=== PATIENT | female | born 1995 | race Caucasian/White ===

== ENCOUNTER 2017-06-21 01:32 | Emergency (ER) | payer OTHER ==
[~2017-06-21] VITALS: Ht 172.7 cm; Wt 54.4 kg
--- NOTE | 2017-06-21 01:45 | NUR ---
TO BED 8 A 21 YO FEMALE BIBSELF C/O TOOTH ABSCESS X 4 DAYS AGO. NAD NOTED. AFEBRILE. VSS. AWAITING FOR ER MD BLOUNT.
--- NOTE | 2017-06-21 02:02 | NUR ---
Dr Dodd at bedside to eval.
--- NOTE | 2017-06-21 02:07 | NUR ---
Patient discharged to home in stable condition. Written and verbal after care instructions given. Patient verbalizes understanding of instruction. Patient is ambulatory with steady gait, no further complaints.
[2017-06-21 02:08] VITALS: BP 111/73
== END 2017-06-21 02:08 | disposition home or self-care (01) ==
LOC: ER 01:39
DX: K08.89 Other specified disorders of teeth and supporting structures (principal)
CPT/HCPCS: 99283; A4606; Z7610

== ENCOUNTER 2017-07-23 03:31 | Emergency (ER) | payer OTHER | END 2017-07-23 03:58 | disposition left against medical advice (07) | LOC: ER 03:31 | DX: Z53.21 Procedure and treatment not carried out due to patient leaving prior to being seen by health care provider (principal) ==

== ENCOUNTER 2018-01-28 15:21 | Emergency (ER) | payer OTHER ==
--- NOTE | 2018-01-28 16:40 | NUR ---
CALLED IN [facility]- NO ANSWER
--- NOTE | 2018-01-28 16:50 | NUR ---
CALLED IN [facility]- NO ANSWER
--- NOTE | 2018-01-28 17:11 | NUR ---
CALLED IN WR- NO MILADYSWER
== END 2018-01-28 17:14 | disposition left against medical advice (07) ==
LOC: ER 15:24
DX: Z53.21 Procedure and treatment not carried out due to patient leaving prior to being seen by health care provider (principal)

== ENCOUNTER 2018-01-28 18:53 | Emergency (ER) | payer OTHER ==
[~2018-01-28] VITALS: Ht 167.6 cm; Wt 54.4 kg
[2018-01-28 19:04] VITALS: BP 126/81
--- NOTE | 2018-01-28 19:12 | NUR ---
DR KELLY AT BEDSIDE FOR EVAL.
--- NOTE | 2018-01-28 19:20 | NUR ---
PT REFUSING IV LINE. REFUSING MEDS. ERMD AWARE.
--- NOTE | 2018-01-28 19:22 | NUR ---
FIBRE CEMENT MOULDER AT BEDSIDE FOR BLOOD DRAW.
[2018-01-28 19:30] LABS: BASOPHILS # (AUTO) 0.1 /CMM (0.0-0.2); BASOPHILS % (AUTO) 0.7 % (0.0-2.0); EOSINOPHILS % (AUTO) 0.5 % (0.0-6.0); HEMATOCRIT 43 % (33-45); LYMPHOCYTES # (AUTO) 1.7 /CMM (0.8-4.8); LYMPHOCYTES % (AUTO) 22.5 % (20.0-44.0); MEAN CORPUSCULAR HEMOGLOBIN 31 PG (26.0-33.0); MEAN CORPUSCULAR HGB CONC 35 g/dl (31.0-36.0); MEAN CORPUSCULAR VOLUME 90 fL (82-100); MONOCYTES # (AUTO) 0.5 /CMM (0.1-1.30); MONOCYTES % (AUTO) 6.6 % (2.0-12.0); NEUTROPHILS # (AUTO) 5.5 /CMM (1.8-8.9); NEUTROPHILS % (AUTO) 69.7 % (43.0-81.0); PLATELET COUNT (AUTO) 232 /CMM (150-450); RDW COEFFICIENT OF VARIATION 11.4 (11.5-15.0); RED BLOOD CELL COUNT(AUTO) 4.78 MIL/uL (4.0-5.2); WHITE BLOOD COUNT (AUTO) 7.8 K/uL (4.3-11.0)
[2018-01-28] MEDS ORDERED: IV NS 0.9% 1,000 ML BAG IV ONE (19:30)
[2018-01-28] MEDS ORDERED: ONDANSETRON HCL/PF 4 MG/2 ML VIAL IVP ONE (19:30)
--- NOTE | 2018-01-28 19:33 | NUR ---
U/S TECH AT BEDSIDE FOR PELVIC ULTRASOUND.
[2018-01-28 19:40] LABS: CALCIUM, SERUM 8.8 mg/dL (8.5-10.1); CREATININE 0.8 mg/dL (0.6-1.3); POTASSIUM 3.3 mmol/L (3.5-5.1)
[2018-01-28] MEDS ORDERED: POTASSIUM CHLORIDE 20 MEQ TAB.PRT.SR PO ONE (20:00)
--- NOTE | 2018-01-28 20:34 | NUR ---
Patient discharged to home in stable condition. Written and verbal after care instructions given. Patient verbalizes understanding of instruction.
== END 2018-01-28 20:36 | disposition home or self-care (01) ==
LOC: ER 18:55
DX: O99.280 Endocrine, nutritional and metabolic diseases complicating pregnancy, unspecified trimester (principal); E87.6 Hypokalemia; I48.91 Unspecified atrial fibrillation; Z3A.00 Weeks of gestation of pregnancy not specified
CPT/HCPCS: 36415; 76856-TC; 80048-TC; 84702-TC; 85025-TC; 86850-TC; A4606; Z7610

== ENCOUNTER 2018-01-29 19:15 | Emergency (ER) | payer OTHER ==
[~2018-01-29] VITALS: Ht 172.7 cm; Wt 54.4 kg
[2018-01-29 19:24] VITALS: BP 108/65
[2018-01-29] MEDS ORDERED: ACETAMINOPHEN 325 MG TABLET ONE (19:59)
== END 2018-01-29 21:00 | disposition home or self-care (01) ==
LOC: ER 19:17
DX: O02.81 Inappropriate change in quantitative human chorionic gonadotropin (hCG) in early pregnancy (principal); I48.91 Unspecified atrial fibrillation
CPT/HCPCS: 36415; 84702; 99283; A4606; Z7610

== ENCOUNTER 2018-02-02 00:36 | Emergency (ER) | payer OTHER ==
[~2018-02-02] VITALS: Ht 172.7 cm; Wt 54.4 kg
--- NOTE | 2018-02-02 00:56 | NUR ---
PT AMBULATORY BILL ER BED 16. PT BIB SELF C/O ABD PAIN X 1 DAY. DENIES N/V/D. 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 VSS/RESP EVEN UNLABORED/NAD NOTED/SKIN WARM AND DRY/AFEBRILE/AOX4. AWAITING MD BLOUNT.
--- NOTE | 2018-02-02 01:59 | NUR ---
ULTRASOUND AT BEDSIDE.
--- NOTE | 2018-02-02 02:40 | NUR ---
DR. WATT AT BEDSIDE SPEAKING TO PT REGARDING RESULTS.
--- NOTE | 2018-02-02 02:52 | NUR ---
Patient discharged to home in stable condition. Written and verbal after care instructions given. Patient verbalizes understanding of instruction. Patient ambulatory with a steady gait.
[2018-02-02 02:53] VITALS: BP 117/74
== END 2018-02-02 02:54 | disposition home or self-care (01) ==
LOC: ER 00:38
DX: O26.891 Other specified pregnancy related conditions, first trimester (principal); R10.2 Pelvic and perineal pain; I48.91 Unspecified atrial fibrillation; Z3A.01 Less than 8 weeks gestation of pregnancy; Z60.2 Problems related to living alone
CPT/HCPCS: 36415; 76856-TC; 84702-TC; A4606; Z7610

== ENCOUNTER 2018-02-08 00:30 | Emergency (ER) | payer OTHER ==
[~2018-02-08] VITALS: Ht 172.7 cm; Wt 54.4 kg
--- NOTE | 2018-02-08 02:52 | NUR ---
PT AMBULATORY TO ER BED 14. "BACK PAIN SINCE YESTERDAY/ABD CRAMPS X3 WEEKS/YEASET INFECTION X5 DAYS". PT IS . 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 VSS/RESP EVEN UNLABORED/NAD NOTED/SKIN WARM AND DRY/DENIES N-V-D/AFEBRILE/AOX4. AWAITING MD BLOUNT.
--- NOTE | 2018-02-08 03:05 | NUR ---
URINE SPECIMEN OBTAINED AND SENT TO THE LAB.
--- NOTE | 2018-02-08 03:25 | NUR ---
LAB AT BEDSIDE TO DRAW.
[2018-02-08 03:33] LABS: APPEARANCE,URINE CLOUDY (CLEAR); BILIRUBIN,URINE NEGATIVE (NEGATIVE); BLOOD, URINE NEGATIVE Ery/uL (NEGATIVE); COLOR,URINE YELLOW (YELLOW); KETONES,URINE NEGATIVE (NEGATIVE); LEUKOCYTE ESTERASE ,URINE 2+ (NEGATIVE); NITRITE, URINE NEGATIVE (NEGATIVE); PROTEIN,URINE NEGATIVE (NEGATIVE); UGLUCOSE NEGATIVE (NEGATIVE); UROBILINOGEN,URINE 0.2 EU/dL (0.2)
[2018-02-08 03:38] LABS: BASOPHILS % (AUTO) 0.4 % (0.0-2.0); EOSINOPHILS % (AUTO) 0.6 % (0.0-6.0); HEMATOCRIT 38 % (33-45); HEMOGLOBIN 13.1 g/dL (11.5-14.8); LYMPHOCYTES # (AUTO) 1.9 /CMM (0.8-4.8); LYMPHOCYTES % (AUTO) 25.2 % (20.0-44.0); MEAN CORPUSCULAR HGB CONC 35 g/dl (31.0-36.0); MEAN CORPUSCULAR VOLUME 91 fL (82-100); MONOCYTES # (AUTO) 0.5 /CMM (0.1-1.30); MONOCYTES % (AUTO) 7.3 % (2.0-12.0); NEUTROPHILS % (AUTO) 66.5 % (43.0-81.0); PLATELET COUNT (AUTO) 209 /CMM (150-450); RDW COEFFICIENT OF VARIATION 12.3 (11.5-15.0); RED BLOOD CELL COUNT(AUTO) 4.12 MIL/uL (4.0-5.2); WHITE BLOOD COUNT (AUTO) 7.5 K/uL (4.3-11.0)
[2018-02-08 03:39] LABS: BACTERIA,URINE 1+ /HPF (None Seen); RBC,URINE 0-2 /HPF (0-2); SQUAMOUS EPITHELIAL CELL,UR Many /HPF (None Seen)
[2018-02-08 03:40] LABS: MUCUS,URINE Few /LPF (None Seen)
[2018-02-08 03:49] LABS: CALCIUM, SERUM 8.9 mg/dL (8.5-10.1); CREATININE 0.7 mg/dL (0.6-1.3); POTASSIUM 3.7 mmol/L (3.5-5.1)
--- NOTE | 2018-02-08 05:09 | NUR ---
ASSISTED ULTRASOUND AT BEDSIDE.
--- NOTE | 2018-02-08 06:12 | NUR ---
Patient discharged to home in stable condition. Written and verbal after care instructions given. Patient verbalizes understanding of instruction. Patient ambulatory with a steady gait.
[2018-02-08 06:13] VITALS: BP 116/61
== END 2018-02-08 06:14 | disposition home or self-care (01) ==
LOC: ER 00:31
DX: O23.41 Unspecified infection of urinary tract in pregnancy, first trimester (principal); I48.91 Unspecified atrial fibrillation; Z3A.01 Less than 8 weeks gestation of pregnancy
CPT/HCPCS: 36415; 76856-TC; 80048-TC; 81000-TC; 84702-TC; 85025-TC; 87086-TC; A4606; Z7610